=== PATIENT | female | born 1970 | race Hispanic/Latino ===

== ENCOUNTER 2018-01-14 14:02 | Inpatient (IN) | payer OTHER ==
[2018-01-14 14:37] VITALS: BMI 43.2
--- NOTE | 2018-01-14 15:10 | C.PDOC ---
History Of Present Illness 47-year-old female, presents to the emergency department with complaints of low blood pressure. Patient states she checked it at home and it was 80/60. Patient notes light headedness and two-week duration of multiple episodes of watery/non- bloody diarrhea. Pt notes she has been taking Prozac x6 days. She also notes associated subjective fevers and nausea. Denies chest pain, shortness of breath, back pain, or any other associated symptoms. No other complaints at this time. <Rosa M Cisse - Last Filed: 01/14/18 18:30> History Per: Patient History/Exam Limitations: no limitations Onset/Duration Of Symptoms: Days Current Symptoms Are (Timing): Still Present <Rosa M Cisse - Last Filed: 01/14/18 18:30> <Tuan Starr - Last Filed: 01/14/18 20:30> Time Seen by Provider: 01/14/18 14:55 Chief Complaint (Nursing): Dizziness/Lightheaded Past Medical History Reviewed: Historical Data, Nursing Documentation, Vital Signs Vital Signs: Last Vital Signs Temp 98.2 F 01/14/18 14:38 Pulse 99 H 01/14/18 14:38 Resp 18 01/14/18 14:38 BP 92/65 L 01/14/18 14:38 Pulse Ox 100 01/14/18 14:38 - Medical History PMH: Anxiety, Arthritis, Asthma, Bipolar Disorder, Post Traumatic Stress Disorder Surgical History: Tonsillectomy Family History: States: No Known Family Hx - Social History Hx Alcohol Use: No Hx Substance Use: No - Immunization History Hx Tetanus Toxoid Vaccination: No Hx Influenza Vaccination: No Hx Pneumococcal Vaccination: No <BetitoRosa M - Last Filed: 01/14/18 18:30> Vital Signs: Last Vital Signs Temp 98.2 F 01/14/18 14:38 Pulse 74 01/14/18 18:22 Resp 18 01/14/18 18:22 BP 116/56 L 01/14/18 18:22 Pulse Ox 100 01/14/18 18:30 <Tuan Starr - Last Filed: 01/14/18 20:30> Review Of Systems Constitutional: Positive for: Fever Cardiovascular: Positive for: Light Headedness Gastrointestinal: Positive for: Nausea. Negative for: Vomiting Musculoskeletal: Negative for: Back Pain Neurological: Negative for: Weakness, Numbness, Headache, Dizziness <Rosa M Cisse Last Filed: 01/14/18 18:30> Physical Exam - Physical Exam Appears: Non-toxic, No Acute Distress Skin: Warm, Dry, Rash Head: Atraumatic, Normacephalic Eye(s): bilateral: Normal Inspection Nose: Normal Oral Mucosa: Moist Lips: Normal Appearing Neck: Normal ROM Chest: Symmetrical Cardiovascular: Rhythm Regular, No Murmur Respiratory: Normal Breath Sounds, No Accessory Muscle Use Gastrointestinal/Abdominal: Soft, No Tenderness Extremity: Normal ROM, No Deformity Neurological/Psych: Oriented x3, Normal Speech <Rosa M Cisse Last Filed: 01/14/18 18:30> ED Course And Treatment - Laboratory Results Result Diagrams: 01/14/18 15:53 01/14/18 15:53 ECG: Interpreted By Mt ECG Rhythm: Sinus Rhythm ECG Interpretation: Normal Rate From EC O2 Sat by Pulse Oximetry: 100 Pulse Ox Interpretation: Normal - Radiology CXR: Interpreted by Mt CXR Interpretation: Yes: No Acute Disease <Rosa M Cisse Filed: 01/14/18 18:30> - Laboratory Results Result Diagrams: 01/14/18 15:53 01/14/18 15:53 <Tuan Starr - Last Filed: 01/14/18 20:30> Progress - Re-Evaluation Re-evaluation Note: 01/14/18 17:06 IVF IN PROGRESS, PS NO UO. CO PERSIST RUQ PAIN. US NEG. WILL CT, PAIN RX CONT IVF. PENDING REPEAT VBG 01/14/18 18:29 no uo. ivf in progress. 116/[address] REPORT PENDING - Data Reviewed Data Reviewed: Lab, Diagnostic imaging, EKG - Critical Care Citical Care: Excluding Proc Time Critical Care Time: 90 minutes <Rosa M Cisse Last Filed: 01/14/18 18:30> Disposition Counseled Patient/Family Regarding: Studies Performed, Diagnosis - Disposition Disposition Time: 19:00 <BetitoRosa M Lilian Last Filed: 01/14/18 18:30> Discussed With : Juan Manuel Schmid Doctor Will See Patient In The: Hospital Counseled Patient/Family Regarding: Studies Performed, Diagnosis - Disposition Disposition Time: 20:29 - POA Present On Arrival: None <Tuan Starr - Last Filed: 01/14/18 20:30> - Disposition Disposition: HOSPITALIZED Condition: STABLE Forms: [facility] (Japanese) - Clinical Impression Clinical Impression: Enteritis, Dehydration syndrome, Diabetes mellitus - Scribe Statement The provider has reviewed the documentation as recorded by the Scribe (Oleg Mosley) Provider Attestation: All medical record entries made by the Scribe were at my direction and personally dictated by me. I have reviewed the chart and agree that the record accurately reflects my personal performance of the history, physical exam, medical decision making, and the department course for this patient. I have also personally directed, reviewed, and agree with the discharge instructions and disposition. <Rosa M Cisse - Last Filed: 01/14/18 18:30> Decision To Admit <Rosa M Cisse - Last Filed: 01/14/18 18:30> <Tuan Starr - Last Filed: 01/14/18 20:30> - . Patient Diagnosis: Enteritis, Dehydration syndrome, Diabetes mellitus Physician Patient Turnover Patient Signed Over To: Tuan Starr Handoff Comments: NORI CT, DISPO <Rosa M Cisse - Last Filed: 01/14/18 18:30>
[2018-01-14 16:01] LABS: VENOUS BLOOD GAS BASE EXCESS 1.1 mmol/L (0.0-2.0); VENOUS BLOOD GAS PCO2 55 mmHg (40-60); VENOUS BLOOD GAS PO2 29 mm/Hg (30-55); VENOUS BLOOD PH 7.32 (7.32-7.43)
[2018-01-14 16:02] LABS: BASO % 0.4 % (0.0-2.0); EOS % 0.4 % (0.0-4.0); LYMPH # 1.7 K/uL (1.0-4.3); LYMPH % 15.4 % (20.0-40.0); MEAN CELL VOLUME 87.1 fL (81.0-99.0); MEAN CORPUSCULAR HEMOGLOBIN 28.5 pg (27.0-31.0); MEAN CORPUSCULAR HGB CONC 32.7 g/dL (33.0-37.0); MEAN PLATELET VOLUME 9.2 fL (7.2-11.7); MONO # 0.6 K/uL (0.0-0.8); MONO % 5.6 % (0.0-10.0); NEUT # 8.8 K/uL (1.8-7.0); NEUT % 78.2 % (50.0-75.0); RBC 4.55 Mil/uL (3.80-5.20); RED CELL DISTRIBUTION WIDTH 14.3 % (11.5-14.5); WHITE BLOOD COUNT 11.2 K/uL (4.8-10.8)
--- NOTE | 2018-01-14 16:06 | RAD ---
HISTORY: Sepsis Patient COMPARISON: None available. TECHNIQUE: Chest, one view. FINDINGS: Examination limited by habitus. LUNGS: No focal consolidation. Please note that chest x-ray has limited sensitivity for the detection of pulmonary masses. PLEURA: No significant pleural effusion identified. No definite pneumothorax . CARDIOVASCULAR: The cardiomediastinal silhouette appears within normal limits of size. OSSEOUS STRUCTURES: No acute osseous abnormality identified. VISUALIZED UPPER ABDOMEN: Unremarkable. OTHER FINDINGS: None. IMPRESSION: No focal consolidation, significant pleural effusion, or definite pneumothorax identified.
[2018-01-14 16:18] LABS: ALBUMIN 4.3 g/dL (3.5-5.0); ALT/SGPT 26 U/L (9-52); AST/SGOT 15 U/L (14-36); BLOOD UREA NITROGEN 26 mg/dL (7-17); CALCIUM 9.4 mg/dl (8.6-10.4); GFR NON-AFRICAN AMERICAN 59
[2018-01-14] MEDS ORDERED: Sodium Chloride 0.9% 500 ML IV ONE (16:21)
[2018-01-14] MEDS ORDERED: Sodium Chloride 0.9% 3,000 ML ONE (16:21)
--- NOTE | 2018-01-14 16:51 | US ---
Date of service: 01/14/2018 HISTORY: RUQ PAIN COMPARISON: None. TECHNIQUE: Sonographic evaluation of the right upper quadrant of the abdomen. FINDINGS: LIVER: Measures 21.9 cm in length. Hepatopedal blood flow. Fatty infiltration manifest ultrasonographically as increased echogenicity of the liver parenchyma. No mass. No intrahepatic bile duct dilatation. GALLBLADDER: Unremarkable. No gallstones. COMMON BILE DUCT: Measures 5.7 mm. No stones. No dilatation. PANCREAS: Unremarkable as visualized. No mass. No ductal dilatation. RIGHT KIDNEY: Measures 6 x 12.2 cm in length. Normal echogenicity. No calculus, mass, or hydronephrosis. AORTA: No aneurysmal dilatation. IVC: Unremarkable. OTHER FINDINGS: None . IMPRESSION: Hepatomegaly, hepatic steatosis. No acute findings related to/accounting for the clinical presentation.
[2018-01-14 17:24] LABS: ALB/GLOB RATIO 1.4 (1.0-2.1)
[2018-01-14] MEDS ORDERED: Morphine 4 MG/ML VIAL ONE (17:27)
[2018-01-14] MEDS ORDERED: Iodixanol 320 MG/ML 100 ML BOTTLE IV ONE (17:45)
[2018-01-14 19:04] LABS: VENOUS BLOOD GAS BASE EXCESS -1.9 mmol/L (0.0-2.0); VENOUS BLOOD GAS PCO2 46 mmHg (40-60); VENOUS BLOOD GAS PO2 18 mm/Hg (30-55); VENOUS BLOOD PH 7.33 (7.32-7.43)
[2018-01-14 19:05] LABS: SQUAMOUS EPITHIAL 4 /hpf (0-5); URINE BACTERIA RARE (<OCC); URINE BILIRUBIN NEGATIVE (NEGATIVE); URINE BLOOD 1+ (NEGATIVE); URINE CLARITY Clear (Clear); URINE COLOR Yellow (YELLOW); URINE GLUCOSE (UA) NORMAL (Normal); URINE LEUKOCYTE ESTERASE TRACE Leu/uL (Negative); URINE PROTEIN NEGATIVE (NEGATIVE); URINE UROBILINOGEN NORMAL mg/dL (0.2-1.0)
[2018-01-14] MEDS ORDERED: (Novolin R) Insulin Human Regular 100 units/ml vial SC SCH (22:00)
[2018-01-14] MEDS: Sodium Chloride 0.9% 1,000 ML IV SCH (23:30)
[2018-01-15 07:39] LABS: BASO % 0.5 % (0.0-2.0); EOS # 0.1 K/uL (0.0-0.7); EOS % 0.9 % (0.0-4.0); LYMPH # 1.3 K/uL (1.0-4.3); LYMPH % 19.8 % (20.0-40.0); MEAN CELL VOLUME 86.6 fL (81.0-99.0); MEAN CORPUSCULAR HGB CONC 33.5 g/dL (33.0-37.0); MEAN PLATELET VOLUME 9.3 fL (7.2-11.7); MONO # 0.5 K/uL (0.0-0.8); MONO % 6.8 % (0.0-10.0); NEUT # 4.9 K/uL (1.8-7.0); RBC 4.13 Mil/uL (3.80-5.20); RED CELL DISTRIBUTION WIDTH 14.4 % (11.5-14.5); WHITE BLOOD COUNT 6.7 K/uL (4.8-10.8)
[2018-01-15 08:32] LABS: ALB/GLOB RATIO 1.1 (1.0-2.1); ALBUMIN 3.3 g/dL (3.5-5.0); ALT/SGPT 23 U/L (9-52); AST/SGOT 13 U/L (14-36); BLOOD UREA NITROGEN 14 mg/dL (7-17); CALCIUM 8.4 mg/dl (8.6-10.4); GFR NON-AFRICAN AMERICAN > 60
[2018-01-15] MEDS: Sodium Chloride 0.9% 1,000 ML IV SCH ×3 (08:45→18:00)
--- NOTE | 2018-01-15 09:12 | CT ---
Date of service: 01/14/2018 PROCEDURE: CT Abdomen and Pelvis with intravenous contrast HISTORY: Right upper quadrant abdominal pain COMPARISON: None. TECHNIQUE: Multiple contiguous axial images were performed through the abdomen and pelvis with the use of intravenous contrast. Subsequently, sagittal and coronal reformatted images were obtained. Radiation dose: Total exam DLP = 1196 mGy-cm. This CT exam was performed using one or more of the following dose reduction techniques: Automated exposure control, adjustment of the mA and/or kV according to patient size, and/or use of iterative reconstruction technique. FINDINGS: LOWER THORAX: Unremarkable. LIVER: Diffuse hepatic hypoattenuation compatible with fatty infiltration. The liver is enlarged measuring 22 centimeters. GALLBLADDER AND BILE DUCTS: Contracted gallbladder. PANCREAS: Unremarkable. No gross lesion or ductal dilatation. SPLEEN: Unremarkable. ADRENALS: Nodular thickening of the adrenal glands. For example, in the left adrenal gland there is a 1.3 centimeter low-attenuation nodule demonstrating a Hounsfield unit attenuation of 29, indeterminate. This may be better evaluated with multiphasic CT or MR if clinically indicated. KIDNEYS AND URETERS: Unremarkable. No hydronephrosis. No solid mass. VASCULATURE: Unremarkable. No aortic aneurysm. BOWEL: Thick walled fluid-filled duodenum and loops of jejunum as well as ileum compatible with enteritis. Infectious and inflammatory etiologies are considered. Consider consultation with GI service and follow-up with upper endoscopy and colonoscopy if clinically indicated. Underdistended and or mildly thickened transverse and descending colon. Clinical correlation. APPENDIX: No findings to suggest acute appendicitis. PERITONEUM: Unremarkable. No free fluid. No free air. LYMPH NODES: Unremarkable. No enlarged lymph nodes. BLADDER: Unremarkable. REPRODUCTIVE: Unremarkable. BONES: Degenerative changes in the spine. OTHER FINDINGS: Few calcifications noted within the region of the inferior right breast on series 3, images 4-8, nonspecific. Correlation with mammography may be helpful if clinically indicated. IMPRESSION: Prominent liver with diffuse decreased attenuation throughout the hepatic parenchyma suggestive for fatty infiltration. Liver is enlarged measuring 22 centimeters. Thick walled fluid-filled duodenum and loops of jejunum as well as ileum compatible with enteritis. Infectious and inflammatory etiologies are considered. Consider consultation with GI service and follow-up with upper endoscopy and colonoscopy if clinically indicated. Underdistended and or mildly thickened transverse and descending colon. Clinical correlation. Few calcifications noted within the region of the inferior right breast on series 3, images 4-8, nonspecific. Correlation with mammography may be helpful if clinically indicated. Nodular thickening of the adrenal glands. For example, in the left adrenal gland there is a 1.3 centimeter low-attenuation nodule demonstrating a Hounsfield unit attenuation of 29, indeterminate. This may be better evaluated with multiphasic CT or MR if clinically indicated. These findings were preliminarily reported at 7 p.m. on 01/14/[address] Jaycob Ludwig from [facility].
[2018-01-15] MEDS: Enoxaparin 40 mg Syringe SC SCH (10:32)
[2018-01-15] MEDS: (Novolin R) Insulin Human Regular 100 units/ml vial SC SCH ×3 (11:59→21:39)
[2018-01-15] MEDS: metroNIDAZOLE IV 500 mg/100 ml 500 MG/100 ML BAG IVPB SCH ×2 (12:50→21:41)
[2018-01-15 14:01] LABS: AMYLASE 45 U/L (30-110); LIPASE 48 U/L (23-300)
--- NOTE | 2018-01-15 21:53 | CP.PCM.HP ---
Past Patient History - Past Social History Smoking Status: Current Some Days Smoker - CARDIAC Hx Cardiac Disorders: Yes Hx Hypotension: Yes - PULMONARY Hx Respiratory Disorders: Yes Hx Asthma: Yes - NEUROLOGICAL Hx Neurological Disorder: No - HEENT Hx HEENT Problems: No - RENAL Hx Chronic Kidney Disease: No - ENDOCRINE/METABOLIC Hx Endocrine Disorders: Yes Hx Diabetes Mellitus Type 2: Yes - HEMATOLOGICAL/ONCOLOGICAL Hx Blood Disorders: No - INTEGUMENTARY Hx Dermatological Problems: No - MUSCULOSKELETAL/RHEUMATOLOGICAL Hx Musculoskeletal Disorders: Yes Hx Arthritis: Yes Hx Falls: No - GASTROINTESTINAL Hx Gastrointestinal Disorders: No - GENITOURINARY/GYNECOLOGICAL Hx Genitourinary Disorders: No - PSYCHIATRIC Hx Psychophysiologic Disorder: Yes Hx Anxiety: Yes Hx Bipolar Disorder: Yes Hx Post Traumatic Stress Disorder: Yes Hx Substance Use: No - SURGICAL HISTORY Hx Surgeries: Yes Hx Tonsillectomy: Yes - ANESTHESIA Hx Anesthesia: Yes Hx Anesthesia Reactions: No Meds Allergies/Adverse Reactions: Allergies Allergy/AdvReac Type Severity Reaction Status Date / Time No Known Allergies Allergy Verified 01/14/18 14:32 Results - Vital Signs Recent Vital Signs: Last Vital Signs Temp 98.3 F 01/15/18 00:00 Pulse 71 01/15/18 00:00 Resp 20 01/15/18 00:00 BP 111/73 01/15/18 00:00 Pulse Ox 96 01/15/18 00:00 - Labs Result Diagrams: 01/15/18 07:28 01/15/18 07:28 Labs: Laboratory Results - last 24 hr 01/14/18 01/14/18 01/15/18 18:41 21:50 07:06 WBC RBC Hgb Hct MCV MCH MCHC RDW Plt Count MPV Neut % (Auto) Lymph % (Auto) Meriwether % (Auto) Eos % (Auto) Baso % (Auto) Neut # (Auto) Lymph # (Auto) Meriwether # (Auto) Eos # (Auto) Baso # (Auto) Sodium Potassium Chloride Carbon Dioxide Anion Gap BUN Creatinine Est GFR ( Amer) Est GFR (Non-Af Amer) POC Glucose (mg/dL) 229 H 208 H 214 H Random Glucose Calcium Total Bilirubin AST ALT Alkaline Phosphatase Total Protein Albumin Globulin Albumin/Globulin Ratio Amylase Lipase 01/15/18 01/15/18 01/15/18 07:28 07:28 11:00 WBC 6.7 RBC 4.13 Hgb 12.0 Hct 35.8 MCV 86.6 MCH 29.0 MCHC 33.5 RDW 14.4 Plt Count 186 MPV 9.3 Neut % (Auto) 72.0 Lymph % (Auto) 19.8 L Meriwether % (Auto) 6.8 Eos % (Auto) 0.9 Baso % (Auto) 0.5 Neut # (Auto) 4.9 Lymph # (Auto) 1.3 Meriwether # (Auto) 0.5 Eos # (Auto) 0.1 Baso # (Auto) 0.0 Sodium 140 Potassium 3.7 Chloride 104 Carbon Dioxide 23 Anion Gap 17 BUN 14 Creatinine 0.6 L Est GFR ( Amer) > 60 Est GFR (Non-Af Amer) > 60 POC Glucose (mg/dL) 329 H Random Glucose 238 H Calcium 8.4 L Total Bilirubin 0.5 AST 13 L ALT 23 Alkaline Phosphatase 88 Total Protein 6.3 Albumin 3.3 L D Globulin 3.0 Albumin/Globulin Ratio 1.1 Amylase Lipase 01/15/18 01/15/18 01/15/18 13:35 16:21 21:22 WBC RBC Hgb Hct MCV MCH MCHC RDW Plt Count MPV Neut % (Auto) Lymph % (Auto) Meriwether % (Auto) Eos % (Auto) Baso % (Auto) Neut # (Auto) Lymph # (Auto) Meriwether # (Auto) Eos # (Auto) Baso # (Auto) Sodium Potassium Chloride Carbon Dioxide Anion Gap BUN Creatinine Est GFR ( Amer) Est GFR (Non-Af Amer) POC Glucose (mg/dL) 206 H 225 H Random Glucose Calcium Total Bilirubin AST ALT Alkaline Phosphatase Total Protein Albumin Globulin Albumin/Globulin Ratio Amylase 45 Lipase 48
--- NOTE | 2018-01-15 23:10 | CARD ---
APPROVED REPORT Date of service: 01/14/2018 EKG Measurement Heart [id number] <Conclusion> Normal sinus rhythm Possible Left atrial enlargement Borderline ECG
[2018-01-16] MEDS: Sodium Chloride 0.9% 1,000 ML IV SCH ×3 (03:55→20:40)
[2018-01-16] MEDS: metroNIDAZOLE IV 500 mg/100 ml 500 MG/100 ML BAG IVPB SCH ×3 (04:58→21:50)
--- NOTE | 2018-01-16 06:54 | HP ---
CHIEF COMPLAINT: Abdominal pain x2 weeks. HISTORY OF PRESENT ILLNESS: A 47-year-old white female with history of obesity, diabetes, hypertension, hyperlipidemia who is compliant with her diet, medication, and followup. The patient believes that since her metformin dosages were increased two weeks ago by her tongue trimmer, she is having diarrhea, nausea, vomiting, persistent abdominal pain in the form of cramps, stool are loose, watery with no blood, no mucous. Stool is green with no tenesmus. The patient has nausea, no vomiting. She has frequency of urination, polyuria, polydipsia. She denies any knee pain, hip pain. She feels bloated. She denies any history of cough, sore throat, runny nose. There is no history of trauma or loss of consciousness. There is no history of seizure like activity. She denies any tingling, numbness, paresthesias of lower extremities. She denies any sneezing, itchy eyes, itchy nose. PAST MEDICAL HISTORY: Diabetes, hypertension, hyperlipidemia. SOCIAL HISTORY: Nonsmoker. Non-ETOH user. CURRENT MEDICATIONS: At home, she is on metformin, trazodone, Prazosin, Ventolin, Lantus, NovoLog, metformin, Cozaar, fluoxetine, Abilify. PHYSICAL EXAMINATION: GENERAL: A middle aged female, in no acute distress. VITAL SIGNS: Blood pressure 111/73, pulse 71, respiratory rate 20, temperature 98.3. SKIN: No rashes. No bruises. No purpura. HEENT: Atraumatic, normocephalic. Negative pallor. Negative jaundice. Extraocular movements are intact. NECK: Supple. No JVD. No lymph node. No thyromegaly. CHEST WALL: Bilaterally symmetrical expansion. LUNGS: Clear. No rales. No rhonchi. CVS: S1, S2, regular. No heave noted. ABDOMEN: Soft. Nontender. Bowel sounds are positive. RECTAL: No masses. No bleed. EXTREMITIES: No clubbing, cyanosis, or edema. PATENT LEATHER SORTER: Awake, alert, oriented x3. Cranial nerves II through XII are all involved, 5/5 x4. ASSESSMENT: 1. Acute colitis, could be gastroenteritis, could be related with metformin. 2. Depression. 3. Diabetes. 4. Hypertension. PLAN: Admit. IV fluids. Antibiotics. GI evaluation. Monitor patient. Juan Manuel Schmid MD
[2018-01-16 07:24] LABS: INR 1.2; PROTHROMBIN TIME 12.9 SECONDS (9.7-12.2)
[2018-01-16] MEDS: (Novolin R) Insulin Human Regular 100 units/ml vial SC SCH ×5 (08:27→21:38)
[2018-01-16] MEDS ORDERED: Propofol 10 mg/ml Inj (20 ML) ONE (09:36)
[2018-01-16] MEDS: Enoxaparin 40 mg Syringe SC SCH (09:44)
[2018-01-16] MEDS ORDERED: Influenza Vaccine 60 MCG/0.5 ML SYR (3 yr & up) IM ONE ×3 (10:00→15:00)
[2018-01-16] MEDS ORDERED: Pneumococcal 23-Valent Vaccine IM ONE ×3 (10:00→15:00)
--- NOTE | 2018-01-16 22:48 | CON ---
DATE: 01/15/[address] Santo Song to Dr. Juan Manuel Schmid. HISTORY OF PRESENT ILLNESS: I was called for GI consultation by the admitting medical team. The patient is seen and fully examined on 01/15/2018 in the presence of the staff in the floor as requested by the admitting MD. The entire chart is reviewed including but not limited to the most recent lab and radiology study results, current and the previous medication list, current and the previous medical events, allergy to medication list as well as all the available current and the previous medical records. Case discussed with all the residential solar consultant in the case. This is a 47-year-old female who was admitted to the hospital initially due to hypotension with slight headache, recurrent episodes of profuse diarrhea, nausea and vomiting on and off, after being taking Prozac for the last 6 to 7 days with dyspepsia, persistent nausea, and low grade fever on and off. No chest pain or palpitation. No significant shortness of breath. PAST MEDICAL HISTORY: Including mainly but not limited to, 1. Bronchial asthma. 2. Bipolar disorder. 3. Severe anxiety syndrome. 4. Osteoarthritis. 5. Status post tonsillectomy. FAMILY HISTORY: Noncontributory. SOCIAL HISTORY: Denied any recent history of cigarette smoking or alcohol intake. CURRENT MEDICATIONS: Post admission medication list was reviewed. ALLERGIES TO MEDICATIONS: UNCLEAR. After being admitted to the hospital, the patient was found to have leukocytosis of 11.2, blood glucose level of 264, BUN 26 with normal creatinine. Stool workup is still pending. PHYSICAL EXAMINATION: GENERAL: A 47-year-old female, awake, alert, oriented. VITAL SIGNS: Afebrile at the time she was seen by me with pulse of 70, respiratory rate 18 to 20 with blood pressure 122/64. HEENT: Showed pale dry oral mucoid membrane mildly, nonicteric sclerae. LYMPH NODES: No lymphadenitis or lymphadenopathy. LUNGS: Few scattered mild crepitation. Breathing sounds are present bilaterally. HEART: Positive S1 and S2. ABDOMEN: Soft with moderate severe midepigastric right upper quadrant, lower left and right quadrant tenderness. No mass or organomegaly. No rebound tenderness or guarding. RECTAL: The patient refused. EXTREMITIES: Without significant clubbing, cyanosis, or edema. No reported new neurological deficits, sensory or motor. IMPRESSION: 1. Re-exacerbation of peptic ulcer disease with recurrent episode of persistent dyspepsia and nausea, to rule out gastric versus duodenal ulcer. 2. Diarrhea, infectious versus drug induced. 3. To rule out occult gastrointestinal malignancy. 4. To rule out drug-induced acute pancreatitis with pancreatic insufficiency. 5. Multiple past medical history as mentioned above. SUGGESTIONS: 1. Agree with your plan. 2. Peripheral hyperalimentation. 3. Proton pump inhibitors IV. 4. Zofran IV. 5. Sectional abdominal and pelvic CT scan. Cancer markers. Endoscopic evaluation of the GI tract when the patient is more stable clinically. Further recommendation to follow. Thank you for letting me participate in your patient's case management. Santo Song MD
--- NOTE | 2018-01-16 23:31 | CP.PCM.PN ---
Subjective - Subjective Subjective: dictated Objective - Vital Signs/Intake and Output Vital Signs (last 24 hours): Temp Pulse Resp BP Pulse Ox 98.4 F 56 L 20 136/73 96 01/16/18 16:00 01/16/18 16:00 01/16/18 16:00 01/16/18 16:00 01/16/18 16:00 Intake and Output: 01/16/18 01/17/18 18:59 06:59 Intake Total 850 Balance 850 - Medications Medications: Current Medications Acetaminophen (Tylenol 325mg Tab) 650 mg PO Q6 PRN PRN Reason: Fever >100.4 F Aripiprazole (Abilify) 30 mg PO DAILY [facility] Last Admin: 01/16/18 09:44 Dose: Not Given Enoxaparin Sodium (Lovenox) 40 mg SC DAILY [facility] Last Admin: 01/16/18 09:44 Dose: Not Given Famotidine (Pepcid) 20 mg IVP Q12 [facility] Last Admin: 01/16/18 21:51 Dose: 20 mg Fluoxetine HCl (Prozac) 20 mg PO DAILY [facility] Last Admin: 01/16/18 09:45 Dose: Not Given Sodium Chloride (Sodium Chloride 0.9%) 1,000 mls @ 100 mls/hr IV .Q10H [facility] Last Admin: 01/16/18 20:40 Dose: 100 mls/hr Metronidazole (Flagyl) 500 mg in 100 mls @ 100 mls/hr IVPB Q8H [facility]; Protocol Last Admin: 01/16/18 21:50 Dose: 100 mls/hr Ceftriaxone Sodium 1 gm/ (Sodium Chloride) 100 mls @ 100 mls/hr IVPB DAILY [facility]; Protocol Last Admin: 01/16/18 11:35 Dose: 100 mls/hr Insulin Human Regular (Novolin R) 0 unit SC ACHS [facility]; Protocol Last Admin: 01/16/18 21:38 Dose: Not Given Montelukast Sodium (Singulair) 10 mg PO DAILY [facility] Last Admin: 01/16/18 09:45 Dose: Not Given Morphine Sulfate (Morphine) 2 mg IVP Q6H PRN PRN Reason: Pain, severe (8-10) Last Admin: 01/16/18 14:28 Dose: 2 mg Ondansetron HCl (Zofran Inj) 4 mg IVP Q6 PRN PRN Reason: Nausea/Vomiting Sucralfate (Carafate Tab) 1 gm PO ACBHS [facility] Last Admin: 01/16/18 21:51 Dose: 1 gm Trazodone HCl (Desyrel) 150 mg PO [facility] Last Admin: 01/16/18 21:51 Dose: 150 mg - Labs Labs: 01/15/18 07:28 01/15/18 07:28 PT 12.9 SECONDS (9.7-12.2) H 01/16/18 06:31 INR 1.2 01/16/18 06:31 APTT 28 SECONDS (21-34) 01/16/18 06:31
[2018-01-17] MEDS: metroNIDAZOLE IV 500 mg/100 ml 500 MG/100 ML BAG IVPB SCH ×3 (04:05→20:11)
[2018-01-17] MEDS: (Novolin R) Insulin Human Regular 100 units/ml vial SC SCH ×4 (08:16→22:15)
[2018-01-17] MEDS: Enoxaparin 40 mg Syringe SC SCH (09:35)
--- NOTE | 2018-01-17 10:11 | PN ---
DATE: 01/17/2018 LOCATION: 350, bed B. HISTORY OF PRESENT ILLNESS: This is a 47-year-old female post upper endoscopy yesterday with biopsy, seen and examined early this morning without significant clinical changes. No reported active bleeding, nausea, or vomiting, or chills or fever. No chest pain or palpitation or reported shortness of breath. Today's lab results still pending, and the latest blood glucose level was 191 with normal serum lipase and amylase levels. Official report of recently done CAT scan of the abdomen and pelvis is seen with evidence of thickened wall of the colon. PHYSICAL EXAMINATION: GENERAL: A 47-year-old female. VITAL SIGNS: Afebrile with pulse of 64, respiratory rate 20-22, blood pressure of 120/68. HEENT: Showed pale, dry oral mucous membrane mildly, nonicteric sclerae. LUNGS: Few scattered crepitations. Decreased air entry at bases. HEART: Positive S1 and S2. ABDOMEN: Soft. Bowel sounds are present with generalized abdominal tenderness. No mass or organomegaly. No rebound tenderness or guarding. EXTREMITIES: Without significant clubbing, cyanosis, or edema. NEUROLOGIC: No reported new neurological deficits, sensory or motor. IMPRESSION: 1. Re-exacerbation of peptic ulcer disease. 2. Abnormal CAT scan of the abdomen and pelvis. The patient will need colonoscopy after adequate preparation. 3. Severe enteritis by radiology study results. 4. Known history of bronchial asthma, severe anxiety syndrome, osteoarthritis as well as bipolar disorder as per records. SUGGESTIONS: 1. Continue current management. 2. We will prepare the patient for colonoscopy after adequate preparation. 3. Further recommendation to follow. Santo Song MD
[2018-01-17 11:16] LABS: BASO # 0.1 K/uL (0.0-0.2); BASO % 0.6 % (0.0-2.0); EOS % 0.4 % (0.0-4.0); HEMOGLOBIN 12.7 g/dL (11.0-16.0); LYMPH # 1.3 K/uL (1.0-4.3); LYMPH % 14.4 % (20.0-40.0); MEAN CELL VOLUME 85.6 fL (81.0-99.0); MEAN CORPUSCULAR HEMOGLOBIN 28.7 pg (27.0-31.0); MEAN CORPUSCULAR HGB CONC 33.6 g/dL (33.0-37.0); MEAN PLATELET VOLUME 9.1 fL (7.2-11.7); MONO # 0.5 K/uL (0.0-0.8); MONO % 5.7 % (0.0-10.0); NEUT % 78.9 % (50.0-75.0); RBC 4.42 Mil/uL (3.80-5.20); RED CELL DISTRIBUTION WIDTH 14.3 % (11.5-14.5); WHITE BLOOD COUNT 8.8 K/uL (4.8-10.8)
[2018-01-17 11:52] LABS: ALB/GLOB RATIO 1.1 (1.0-2.1); ALBUMIN 3.4 g/dL (3.5-5.0); ALT/SGPT 23 U/L (9-52); AST/SGOT 15 U/L (14-36); BLOOD UREA NITROGEN 6 mg/dL (7-17); CALCIUM 8.6 mg/dl (8.6-10.4); GFR NON-AFRICAN AMERICAN > 60
[2018-01-17] MEDS: Sodium Chloride 0.9% 1,000 ML IV SCH ×3 (12:19→20:11)
--- NOTE | 2018-01-17 22:10 | CP.PCM.PN ---
Subjective - Subjective Subjective: dictated Objective - Vital Signs/Intake and Output Vital Signs (last 24 hours): Temp Pulse Resp BP Pulse Ox 97.8 F 55 L 20 145/84 96 01/17/18 16:00 01/17/18 16:00 01/17/18 16:00 01/17/18 16:00 01/17/18 16:00 Intake and Output: 01/17/18 01/18/18 18:59 06:59 Intake Total 1200 Balance 1200 - Medications Medications: Current Medications Acetaminophen (Tylenol 325mg Tab) 650 mg PO Q6 PRN PRN Reason: Fever >100.4 F Last Admin: 01/17/18 16:09 Dose: 650 mg Aripiprazole (Abilify) 30 mg PO DAILY [facility] Last Admin: 01/17/18 09:57 Dose: 30 mg Enoxaparin Sodium (Lovenox) 40 mg SC DAILY [facility] Last Admin: 01/17/18 09:35 Dose: 40 mg Famotidine (Pepcid) 20 mg IVP Q12 [facility] Last Admin: 01/17/18 21:04 Dose: 20 mg Fluoxetine HCl (Prozac) 20 mg PO DAILY [facility] Last Admin: 01/17/18 09:36 Dose: 20 mg Sodium Chloride (Sodium Chloride 0.9%) 1,000 mls @ 100 mls/hr IV .Q10H [facility] Last Admin: 01/17/18 20:11 Dose: Not Given Metronidazole (Flagyl) 500 mg in 100 mls @ 100 mls/hr IVPB Q8H [facility]; Protocol Last Admin: 01/17/18 20:11 Dose: 100 mls/hr Ceftriaxone Sodium 1 gm/ (Sodium Chloride) 100 mls @ 100 mls/hr IVPB DAILY [facility]; Protocol Last Admin: 01/17/18 12:18 Dose: 100 mls/hr Insulin Human Regular (Novolin R) 0 unit SC ACHS [facility]; Protocol Last Admin: 01/17/18 17:59 Dose: 2 units Montelukast Sodium (Singulair) 10 mg PO DAILY [facility] Last Admin: 01/17/18 09:35 Dose: 10 mg Morphine Sulfate (Morphine) 2 mg IVP Q6H PRN PRN Reason: Pain, severe (8-10) Last Admin: 01/17/18 16:21 Dose: 2 mg Ondansetron HCl (Zofran Inj) 4 mg IVP Q6 PRN PRN Reason: Nausea/Vomiting Sennosides (Senokot Tab) 8.6 mg PO DAILY [facility] Last Admin: 01/17/18 17:59 Dose: 8.6 mg Sucralfate (Carafate Tab) 1 gm PO ACBHS [facility] Last Admin: 01/17/18 21:04 Dose: 1 gm Trazodone HCl (Desyrel) 150 mg PO HS [facility] Last Admin: 01/17/18 21:04 Dose: 150 mg - Labs Labs: 01/17/18 11:09 01/17/18 11:09 PT 12.9 SECONDS (9.7-12.2) H 01/16/18 06:31 INR 1.2 01/16/18 06:31 APTT 28 SECONDS (21-34) 01/16/18 06:31
[2018-01-18] MEDS: Sodium Chloride 0.9% 1,000 ML IV SCH ×2 (00:59→13:40)
[2018-01-18] MEDS: metroNIDAZOLE IV 500 mg/100 ml 500 MG/100 ML BAG IVPB SCH ×3 (04:13→21:37)
[2018-01-18] MEDS: (Novolin R) Insulin Human Regular 100 units/ml vial SC SCH ×4 (08:36→21:36)
[2018-01-18] MEDS: Enoxaparin 40 mg Syringe SC SCH (09:48)
[2018-01-18] MEDS ORDERED: Peg-Electrolyte Oral Soln 4L (Golytely) PO ONE (11:00)
--- NOTE | 2018-01-18 13:38 | PN ---
DATE: 01/18/2018 LOCATION: 350, bed B. SUBJECTIVE: This is a 47-year-old female seen and examined in rounds without significant clinical changes, but intermittent period of abdominal pain with postprandial abdominal distention. The entire chart is reviewed including but not limited to the most recent lab and radiology study results, current and the previous medication list, current and the previous medical events. Today's lab results showed blood glucose level of 256. Rest of the lab results still pending. It has to be mentioned that the patient denied any actual chest pain, palpitation, shortness of breath. PHYSICAL EXAMINATION: GENERAL: A 47-year-old female complaining of abdominal pain this morning in the midepigastric and left quadrant area. VITAL SIGNS: Afebrile with pulse of 64, respiratory rate 20 to 22, blood pressure of 136/76. HEENT: Showed pale, dry oral mucous membrane. Nonicteric sclerae. LUNGS: Few scattered crepitation. Decreased air entry at bases. HEART: Positive S1 and S2. ABDOMEN: Soft with mild generalized tenderness. No mass or organomegaly. No rebound tenderness or guarding. Abdominal distention noticed. RECTAL: The patient refused. EXTREMITIES: Without edema, clubbing or cyanosis. IMPRESSION: 1. Re-exacerbation of peptic ulcer disease. 2. Abnormal CAT scan of the abdomen and pelvis. 3. Poorly-controlled diabetes mellitus. 4. Known history of bronchial asthma, severe anxiety syndrome with osteoarthritis as well as reported bipolar disorder. SUGGESTIONS: 1. Continue current management. 2. The patient for colonoscopy at a.m. 3. Further recommendation to follow. Santo Song MD
[2018-01-18] MEDS ORDERED: Bisacodyl 5mg EC Tab PO ONE (17:00)
--- NOTE | 2018-01-18 19:15 | CP.PCM.PN ---
Objective - Vital Signs/Intake and Output Vital Signs (last 24 hours): Temp Pulse Resp BP Pulse Ox 98.2 F 56 L 20 139/83 97 01/18/18 16:00 01/18/18 16:00 01/18/18 16:00 01/18/18 16:00 01/18/18 16:00 Intake and Output: 01/18/18 01/19/18 18:59 06:59 Intake Total 2220 Balance 2220 - Medications Medications: Current Medications Acetaminophen (Tylenol 325mg Tab) 650 mg PO Q6 PRN PRN Reason: Fever >100.4 F Last Admin: 01/17/18 16:09 Dose: 650 mg Aripiprazole (Abilify) 30 mg PO DAILY [facility] Last Admin: 01/18/18 09:48 Dose: 30 mg Enoxaparin Sodium (Lovenox) 40 mg SC DAILY [facility] Last Admin: 01/18/18 09:48 Dose: 40 mg Famotidine (Pepcid) 20 mg IVP Q12 [facility] Last Admin: 01/18/18 10:28 Dose: 20 mg Fluoxetine HCl (Prozac) 20 mg PO DAILY [facility] Last Admin: 01/18/18 09:48 Dose: 20 mg Sodium Chloride (Sodium Chloride 0.9%) 1,000 mls @ 100 mls/hr IV .Q10H [facility] Last Admin: 01/18/18 13:40 Dose: 100 mls/hr Metronidazole (Flagyl) 500 mg in 100 mls @ 100 mls/hr IVPB Q8H [facility]; Protocol Last Admin: 01/18/18 13:41 Dose: 100 mls/hr Ceftriaxone Sodium 1 gm/ (Sodium Chloride) 100 mls @ 100 mls/hr IVPB DAILY [facility]; Protocol Last Admin: 01/18/18 09:50 Dose: 100 mls/hr Insulin Human Regular (Novolin R) 0 unit SC ACHS [facility]; Protocol Last Admin: 01/18/18 17:09 Dose: Not Given Metoclopramide HCl (Reglan) 5 mg IVP Q6H [facility] Last Admin: 01/18/18 08:35 Dose: 5 mg Montelukast Sodium (Singulair) 10 mg PO DAILY [facility] Last Admin: 01/18/18 09:48 Dose: 10 mg Morphine Sulfate (Morphine) 2 mg IVP Q6H PRN PRN Reason: Pain, severe (8-10) Last Admin: 01/17/18 16:21 Dose: 2 mg Ondansetron HCl (Zofran Inj) 4 mg IVP Q6 PRN PRN Reason: Nausea/Vomiting Sennosides (Senokot Tab) 8.6 mg PO DAILY [facility] Last Admin: 01/18/18 09:48 Dose: 8.6 mg Sucralfate (Carafate Tab) 1 gm PO ACBHS [facility] Last Admin: 01/18/18 08:36 Dose: 1 gm Trazodone HCl (Desyrel) 150 mg PO HS [facility] Last Admin: 01/17/18 21:04 Dose: 150 mg - Labs Labs: 01/17/18 11:09 01/17/18 11:09 PT 12.9 SECONDS (9.7-12.2) H 01/16/18 06:31 INR 1.2 01/16/18 06:31 APTT 28 SECONDS (21-34) 01/16/18 06:31
[2018-01-19] MEDS: Sodium Chloride 0.9% 1,000 ML IV SCH ×3 (02:00→13:10)
[2018-01-19] MEDS: metroNIDAZOLE IV 500 mg/100 ml 500 MG/100 ML BAG IVPB SCH ×2 (03:59→13:09)
[2018-01-19] MEDS: (Novolin R) Insulin Human Regular 100 units/ml vial SC SCH ×3 (08:31→17:19)
--- NOTE | 2018-01-19 10:02 | PN ---
DATE: 01/18/2018 SUBJECTIVE: The patient is feeling better. She has decreased abdominal pain. She is on solid diet and she is tolerating well. She has no fever or chills. She denies any diarrhea. The patient had a bowel movement of small amount. PHYSICAL EXAMINATION: VITAL SIGNS: BP 139/83, pulse 56, respiratory rate 20, and temperature 98.2. LUNGS: Clear. No rales. No rhonchi. CARDIOVASCULAR SYSTEM: S1 and S2, regular. ABDOMEN: Soft and nontender. Bowel sounds are positive. ASSESSMENT: 1. Gastritis, enteritis. 2. Dehydration. 3. Type 2 diabetes. 4. Hypertension. PLAN: Continue current medications. Proceed diet. Monitor the patient. Juan Manuel Schmid MD
[2018-01-19] MEDS: Enoxaparin 40 mg Syringe SC SCH (10:28)
[2018-01-19] MEDS ORDERED: Lactated Ringer's 1,000 ML IV ONE (11:05)
[2018-01-19] MEDS ORDERED: Midazolam 2 MG/2 ML VIAL ONE (11:10)
[2018-01-19] MEDS ORDERED: Propofol 10 mg/ml Inj (20 ML) ONE ×2 (11:10→11:23)
--- NOTE | 2018-01-19 15:55 | CP.PCM.PN ---
Subjective - Date & Time of Evaluation Date of Evaluation: 01/19/18 Time of Evaluation: 15:55 - Subjective Subjective: Alert, orientedx3, denies acute pain, nausea or vomiting, NAD. Objective - Vital Signs/Intake and Output Vital Signs (last 24 hours): Temp Pulse Resp BP Pulse Ox 97.3 F L 63 18 150/64 100 01/19/18 11:33 01/19/18 12:03 01/19/18 12:03 01/19/18 12:03 01/19/18 12:03 Intake and Output: 01/19/18 01/19/18 06:59 18:59 Intake Total 800 Balance 800 - Medications Medications: Current Medications Acetaminophen (Tylenol 325mg Tab) 650 mg PO Q6 PRN PRN Reason: Fever >100.4 F Last Admin: 01/19/18 13:06 Dose: 650 mg Aripiprazole (Abilify) 30 mg PO DAILY [facility] Last Admin: 01/19/18 13:06 Dose: 30 mg Enoxaparin Sodium (Lovenox) 40 mg SC DAILY [facility] Last Admin: 01/19/18 10:28 Dose: Not Given Famotidine (Pepcid) 20 mg IVP Q12 [facility] Last Admin: 01/19/18 10:28 Dose: 20 mg Fluoxetine HCl (Prozac) 20 mg PO DAILY [facility] Last Admin: 01/19/18 13:09 Dose: 20 mg Sodium Chloride (Sodium Chloride 0.9%) 1,000 mls @ 100 mls/hr IV .Q10H [facility] Last Admin: 01/19/18 13:10 Dose: Not Given Metronidazole (Flagyl) 500 mg in 100 mls @ 100 mls/hr IVPB Q8H [facility]; Protocol Last Admin: 01/19/18 13:09 Dose: 100 mls/hr Ceftriaxone Sodium 1 gm/ (Sodium Chloride) 100 mls @ 100 mls/hr IVPB DAILY [facility]; Protocol Last Admin: 01/19/18 10:23 Dose: 100 mls/hr Insulin Human Regular (Novolin R) 0 unit SC ACHS [facility]; Protocol Last Admin: 01/19/18 11:30 Dose: Not Given Metoclopramide HCl (Reglan) 5 mg IVP Q6H [facility] Last Admin: 01/19/18 13:10 Dose: Not Given Montelukast Sodium (Singulair) 10 mg PO DAILY [facility] Last Admin: 01/19/18 10:29 Dose: Not Given Ondansetron HCl (Zofran Inj) 4 mg IVP Q6 PRN PRN Reason: Nausea/Vomiting Sennosides (Senokot Tab) 8.6 mg PO DAILY [facility] Last Admin: 01/19/18 13:09 Dose: 8.6 mg Sucralfate (Carafate Tab) 1 gm PO ACBHS [facility] Last Admin: 01/19/18 08:30 Dose: Not Given Trazodone HCl (Desyrel) 150 mg PO HS [facility] Last Admin: 01/18/18 21:38 Dose: 150 mg - Labs Labs: 01/17/18 11:09 01/17/18 11:09 PT 12.9 SECONDS (9.7-12.2) H 01/16/18 06:31 INR 1.2 01/16/18 06:31 APTT 28 SECONDS (21-34) 01/16/18 06:31 Assessment and Plan - Assessment and Plan (Free Text) Assessment: 47 year old female admitted with enteritis, s/p colonoscopy today, no active bleeding, cleared by DR Pope, seen and examined. Alert and oriented xx3, denies acute pain or distress. Discussed with DR Schmid, plan to discharge home and decrease the metformin to 500mg po bid.Advised to advance diet slowly and follow up with PMD in 1 week.
[2018-01-19 16:44] VITALS: BP 134/82; PULSE 62; RESP 20; TEMP 98.2; O2SAT 98
--- NOTE | 2018-01-19 22:10 | CP.PCM.DIS ---
Provider - Provider Date of Admission: 01/14/18 20:30 Attending physician: Juan Manuel Schmid MD Hospital Course - Lab Results Lab Results: Most Recent Lab Values WBC 8.8 K/uL (4.8-10.8) 01/17/18 11:09 RBC 4.42 Mil/uL (3.80-5.20) 01/17/18 11:09 Hgb 12.7 g/dL (11.0-16.0) 01/17/18 11:09 Hct 37.9 % (34.0-47.0) 01/17/18 11:09 MCV 85.6 fL (81.0-99.0) 01/17/18 11:09 MCH 28.7 pg (27.0-31.0) 01/17/18 11:09 MCHC 33.6 g/dL (33.0-37.0) 01/17/18 11:09 RDW 14.3 % (11.5-14.5) 01/17/18 11:09 Plt Count 194 K/uL (130-400) 01/17/18 11:09 MPV 9.1 fL (7.2-11.7) 01/17/18 11:09 Neut % (Auto) 78.9 % (50.0-75.0) H 01/17/18 11:09 Lymph % (Auto) 14.4 % (20.0-40.0) L 01/17/18 11:09 [place] % (Auto) 5.7 % (0.0-10.0) 01/17/18 11:09 Eos % (Auto) 0.4 % (0.0-4.0) 01/17/18 11:09 Baso % (Auto) 0.6 % (0.0-2.0) 01/17/18 11:09 Neut # (Auto) 7.0 K/uL (1.8-7.0) 01/17/18 11:09 Lymph # (Auto) 1.3 K/uL (1.0-4.3) 01/17/18 11:09 [place] # (Auto) 0.5 K/uL (0.0-0.8) 01/17/18 11:09 Eos # (Auto) 0.0 K/uL (0.0-0.7) 01/17/18 11:09 Baso # (Auto) 0.1 K/uL (0.0-0.2) 01/17/18 11:09 PT 12.9 SECONDS (9.7-12.2) H 01/16/18 06:31 INR 1.2 01/16/18 06:31 APTT 28 SECONDS (21-34) 01/16/18 06:31 pO2 18 mm/Hg (30-55) L 01/14/18 19:01 VBG pH 7.33 (7.32-7.43) 01/14/18 19: VBG pCO2 46 mmHg (40-60) 01/14/18 19: VBG HCO3 21.4 mmol/L 01/14/18 19: VBG Total CO2 25.7 mmol/L (22-28) 01/14/18 19:01 VBG O2 Sat (Calc) 29.3 % (40-65) L 01/14/18 19:01 VBG Base Excess -1.9 mmol/L (0.0-2.0) L 01/14/18 19:01 VBG Potassium 2.8 mmol/L (3.6-5.2) L 01/14/18 19:01 Sodium 139.0 mmol/l (132-148) 01/14/18 19:01 Chloride 111.0 mmol/L (98-107) H 01/14/18 19:01 Glucose 179 mg/dl (65-105) H 01/14/18 19:01 Lactate 0.8 mmol/L (0.7-2.1) 01/14/18 19: FiO2 21.0 % 01/14/18 15:50 Sodium 137 mmol/L (132-148) 01/17/18 11:09 Potassium 3.8 mmol/L (3.6-5.2) 01/17/18 11:09 Chloride 100 mmol/L (98-107) 01/17/18 11:09 Carbon Dioxide 26 mmol/L (22-30) 01/17/18 11:09 Anion Gap 15 (10-20) 01/17/18 11:09 BUN 6 mg/dL (7-17) L 01/17/18 11:09 Creatinine 0.5 mg/dL (0.7-1.2) L 01/17/18 11:09 Est GFR ( Amer) > 60 01/17/18 11:09 Est GFR (Non-Af Amer) > 60 01/17/18 11:09 POC Glucose (mg/dL) 240 mg/dL (65-110) H 01/19/18 16:25 Random Glucose 232 mg/dL (65-105) H 01/17/18 11:09 Calcium 8.6 mg/dl (8.6-10.4) 01/17/18 11:09 Phosphorus 3.4 mg/dL (2.5-4.5) 01/14/18 15:53 Magnesium 1.5 mg/dL (1.6-2.3) L 01/14/18 15:53 Total Bilirubin 0.4 mg/dL (0.2-1.3) 01/17/18 11:09 AST 15 U/L (14-36) 01/17/18 11:09 ALT 23 U/L (9-52) 01/17/18 11:09 Alkaline Phosphatase 85 U/L (38-126) 01/17/18 11:09 Total Protein 6.4 g/dL (6.3-8.3) 01/17/18 11:09 Albumin 3.4 g/dL (3.5-5.0) L 01/17/18 11:09 Globulin 3.0 gm/dL (2.2-3.9) 01/17/18 11:09 Albumin/Globulin Ratio 1.1 (1.0-2.1) 01/17/18 11:09 Amylase 45 U/L (30-110) 01/15/18 13:35 Lipase 48 U/L (23-300) 01/15/18 13:35 Carcinoembryonic Ag 3.2 ng/mL (0-3.0) H 01/16/18 06:31 Venous Blood Potassium 2.8 mmol/L (3.6-5.2) L 01/14/18 19:01 Urine Color Yellow (YELLOW) 01/14/18 18:54 Urine Clarity Clear (Clear) 01/14/18 18:54 Urine pH 5.0 (5.0-8.0) 01/14/18 18:54 Ur Specific [place] 1.030 (1.003-1.030) 01/14/18 18:54 Urine Protein Negative mg/dL (NEGATIVE) 01/14/18 18:54 Urine Glucose (UA) Normal mg/dL (Normal) 01/14/18 18:54 Urine Ketones Negative mg/dL (NEGATIVE) 01/14/18 18:54 Urine Blood 1+ (NEGATIVE) H 01/14/18 18:54 Urine Nitrate Negative (NEGATIVE) 01/14/18 18:54 Urine Bilirubin Negative (NEGATIVE) 01/14/18 18:54 Urine Urobilinogen Normal mg/dL (0.2-1.0) 01/14/18 18:54 Ur Leukocyte Esterase Trace Javi/uL (Negative) 01/14/18 18:54 Urine WBC (Auto) 7 /hpf (0-5) H 01/14/18 18:54 Urine RBC (Auto) 9 /hpf (0-3) H 01/14/18 18:54 Ur Squamous Epith Cells 4 /hpf (0-5) 01/14/18 18:54 Urine Bacteria Rare (<OCC) 01/14/18 18:54 Urine HCG, Qual Negative (NEGATIVE) 01/19/18 06:59 Discharge Plan - Discharge Medications Prescriptions: MetFORMIN [glucoPHAGE] 500 mg PO BID 30 Days tab - Follow Up Plan Condition: STABLE Disposition: HOME/ ROUTINE Instructions: Diarrhea in Adolescents and Adults, Diabetes Exchange Diet, Dehydration, Adult (DC), Diabetic Meal Planning Referrals: Juan Manuel Schmid MD [Staff Provider] -
--- NOTE | 2018-01-20 07:03 | PN ---
DATE: 01/17/2018 SUBJECTIVE: Piero Esposito has no bowel movement since she came in the hospital. She has persistent abdominal pain; however, she wants to try diet. The patient has been seen by GI. There is a possible colonoscopy near on Friday. The patient other than that is feeling better. She denies any shortness of breath. No chest pain. PHYSICAL EXAMINATION: VITAL SIGNS: Blood pressure 145/84, pulse 55, respiratory rate 20, temperature 97.8. LUNGS: Clear. No rales. No rhonchi. CARDIOVASCULAR SYSTEM: S1 and S2, regular. ABDOMEN: Soft, nontender. Bowel sounds are positive. ASSESSMENT: 1. Gastritis, enteritis, colitis. 2. Hypertension. 3. Type-2 diabetes. 4. Dehydration. PLAN: Proceed diet. Senna tablet at bedtime. Monitor the patient. Juan Manuel Schmid MD
--- NOTE | 2018-01-20 07:10 | PN ---
DATE: 01/16/2018 SUBJECTIVE: Status post EGD and she has gastritis, antritis. She has less abdominal pain. She is afebrile. No shortness of breath. She is on diet. PHYSICAL EXAMINATION: VITAL SIGNS: Blood pressure 130/76, pulse 56, respiratory rate 20, temperature 98.4. LUNGS: Clear. CARDIOVASCULAR SYSTEM: S1 and S2, regular. ABDOMEN: Soft. ASSESSMENT: 1. Gastritis, enteritis. 2. Dehydration. 3. Type 2 diabetes. PLAN: Continue current medication. Monitor the patient. Juan Manuel Schmid MD
--- NOTE | 2018-01-20 10:40 | DS ---
SUBJECTIVE: She is status post colonoscopy. She was found to have enteritis in the meantime. The patient feels better. She denies any abdominal pain, nausea, or vomiting. She denies any fever or chills. No cough. No soar throat. PHYSICAL EXAMINATION: VITAL SIGNS: Blood pressure 134/82, pulse 64, respiratory rate 20, and temperature 98.2. LUNGS: Clear. CVS: S1 and S2 regular. ABDOMEN: Soft. LABORATORY DATA: WBC 8.8, hemoglobin 12.7, hematocrit 37.9, and platelets 194. Chemistry: Sodium 137, potassium 3.8, chloride 100, bicarb 26, BUN 6, and creatinine 0.5. DISCHARGE DIAGNOSES: 1. Enteritis. 2. Dehydration. 3. Diabetes. 4. Hypertension. PLAN: Discharge the patient. Juan Manuel Schmid MD
== END 2018-01-19 20:21 | disposition home or self-care (01) | DRG 813 ==
LOC: C.ER 14:02 → C.9E 20:30 → C.3T 21:12
PROVIDERS: ADMIT Internal Medicine; ATTEND Internal Medicine
DX: A09 Infectious gastroenteritis and colitis, unspecified (principal); E11.65 Type 2 diabetes mellitus with hyperglycemia; K29.70 Gastritis, unspecified, without bleeding; E86.0 Dehydration; I10 Essential (primary) hypertension; J45.909 Unspecified asthma, uncomplicated; F31.9 Bipolar disorder, unspecified; K27.9 Peptic ulcer, site unspecified, unspecified as acute or chronic, without hemorrhage or perforation; F43.10 Post-traumatic stress disorder, unspecified; E78.5 Hyperlipidemia, unspecified; Z87.891 Personal history of nicotine dependence

== ENCOUNTER 2018-01-21 17:05 | Observation (INO) | payer OTHER ==
[2018-01-21 17:05] VITALS: BMI 43.2
[2018-01-21] MEDS ORDERED: Sodium Chloride 0.9% 1,000 ML IV ONE ×2 (19:08)
--- NOTE | 2018-01-21 19:09 | C.PDOC ---
History Of Present Illness 47 year old female with PMHx HTN is sent to the ED from her PMD's office for evaluation of hypotension. Patient c/o headache, dizziness and low blood pressure for the past week. Patient states she also has high blood sugar. Patient denies fever, chills, visual changes, nausea, vomit, weakness, numbness. Chief Complaint (Nursing): Dizziness/Lightheaded History Per: Patient History/Exam Limitations: no limitations Onset/Duration Of Symptoms: Days Current Symptoms Are (Timing): Still Present Activity At Onset Of Symptoms: Standing Associated Symptoms Preceding Syncopal Episode: Lightheadedness Seizure Or Post-ictal Symptoms: None Possible Causative Factor(s): Other Recent travel outside of the [place]: No Additional History Per: Patient Past Medical History Reviewed: Historical Data, Nursing Documentation, Vital Signs Vital Signs: Last Vital Signs Temp 97.8 F 01/21/18 17:35 Pulse 77 01/21/18 18:48 Resp 15 01/21/18 18:48 BP 89/60 L 01/21/18 18:48 Pulse Ox 100 01/21/18 18:48 - Medical History PMH: Anxiety, Arthritis, Asthma, Bipolar Disorder, Depression, Post Traumatic Stress Disorder Denies: Chronic Kidney Disease Surgical History: Tonsillectomy Family History: States: Unknown Family Hx - Social History Hx Alcohol Use: No Hx Substance Use: No - Immunization History Hx Tetanus Toxoid Vaccination: No Hx Influenza Vaccination: No Hx Pneumococcal Vaccination: No Review Of Systems Constitutional: Negative for: Fever, Chills Eyes: Negative for: Vision Change Cardiovascular: Negative for: Chest Pain, Palpitations Respiratory: Negative for: Cough, Shortness of Breath Gastrointestinal: Positive for: Nausea. Negative for: Vomiting, Abdominal Pain Neurological: Positive for: Headache, Dizziness. Negative for: Weakness, Numbness Physical Exam - Physical Exam Appears: Non-toxic, No Acute Distress Skin: Normal Color, Warm, Dry Head: Atraumatic, Normacephalic Eye(s): bilateral: Normal Inspection Neck: Normal ROM, Supple Chest: Symmetrical Cardiovascular: Rhythm Regular Respiratory: Normal Breath Sounds, No Rales, No Rhonchi, No Wheezing Gastrointestinal/Abdominal: Soft, No Tenderness, No Guarding, No Rebound Extremity: Normal ROM, No Tenderness, No Swelling Neurological/Psych: Oriented x3, Normal Speech, Normal Cognition, Other (no focal deficits) Gait: Steady ED Course And Treatment - Laboratory Results Result Diagrams: 01/21/18 20:55 01/21/18 20:55 ECG: Interpreted By Me, Viewed By Me ECG Rhythm: Sinus Rhythm ECG Interpretation: No Acute Changes Interpretation Of ECG: NSR, possible LAE, birderline tracings Rate From EC O2 Sat by Pulse Oximetry: 100 (ON RA) Pulse Ox Interpretation: Normal - CT Scan/US CT head Other Rad Studies (CT/US): Read By Radiologist, Radiology Report Reviewed CT/US Interpretation: EXAM: CT Head Without IV contrast. CLINICAL HISTORY: HEADACHE. TECHNIQUE: Axial computed tomography images of the head/brain without intravenous contrast. 1058 mGy-cm. COMPARISON: None provided. FINDINGS: BRAIN. No acute intraparenchymal hemorrhage. No mass lesion. No CT evidence for acute territorial infarct. No midline shift or extra-axial collections. VENTRICLES: No hydrocephalus. ORBITS: The orbits are unremarkable. SINUSES AND MASTOIDS: The paranasal sinuses and mastoid air cells are clear. BONES: No fracture. IMPRESSION: No acute intracranial abnormality. . Electronically signed on Jan 21, 2018 7:54:38 PM EDT by: Jaycob Ludwig M.D., RUTHIE Certified By ABR & CBCCT. Fellowship Trained MRI and CT Specialist Medical Decision Making Medical Decision Making: Plan: * CT head * EKG * Labs * IV fluids * UA Blood pressure recheck was 97/56 Disposition Discussed With : Juan Manuel Schmid Doctor Will See Patient In The: Hospital Counseled Patient/Family Regarding: Diagnosis - Disposition Disposition: HOSPITALIZED Disposition Time: 21:52 Condition: STABLE Forms: [facility] ([place]) - Clinical Impression Clinical Impression: Dizziness, Hypotensive episode, UTI (urinary tract infection), Diabetes mellitus - Scribe Statement The provider has reviewed the documentation as recorded by the Scribe Delfino Valdez All medical record entries made by the Scribe were at my direction and personally dictated by me. I have reviewed the chart and agree that the record accurately reflects my personal performance of the history, physical exam, medical decision making, and the department course for this patient. I have also personally directed, reviewed, and agree with the discharge instructions and disposition.
[2018-01-21] MEDS ORDERED: Sodium Chloride 0.9% 1,000 ML ONE (19:44)
[2018-01-21 21:01] LABS: BASO % 0.4 % (0.0-2.0); EOS # 0.1 K/uL (0.0-0.7); EOS % 0.6 % (0.0-4.0); HEMOGLOBIN 13.4 g/dL (11.0-16.0); LYMPH % 19.2 % (20.0-40.0); MEAN CELL VOLUME 86.2 fL (81.0-99.0); MEAN CORPUSCULAR HEMOGLOBIN 28.5 pg (27.0-31.0); MEAN PLATELET VOLUME 9.6 fL (7.2-11.7); MONO # 0.9 K/uL (0.0-0.8); MONO % 8.3 % (0.0-10.0); NEUT # 7.5 K/uL (1.8-7.0); NEUT % 71.5 % (50.0-75.0); RBC 4.71 Mil/uL (3.80-5.20); RED CELL DISTRIBUTION WIDTH 14.7 % (11.5-14.5); WHITE BLOOD COUNT 10.4 K/uL (4.8-10.8)
[2018-01-21 21:08] LABS: SQUAMOUS EPITHIAL 31 /hpf (0-5); URINE BACTERIA RARE (<OCC); URINE BILIRUBIN 1+ (NEGATIVE); URINE BLOOD NEGATIVE (NEGATIVE); URINE CLARITY Hazy (Clear); URINE COLOR Amber (YELLOW); URINE GLUCOSE (UA) 1+ mg/dL (Normal); URINE HYALINE CAST >20 /lpf (0-2); URINE LEUKOCYTE ESTERASE TRACE Leu/uL (Negative); URINE PROTEIN 1+ mg/dL (NEGATIVE)
[2018-01-21 21:17] LABS: ALB/GLOB RATIO 1.3 (1.0-2.1); ALT/SGPT 31 U/L (9-52); AST/SGOT 26 U/L (14-36); BLOOD UREA NITROGEN 13 mg/dL (7-17); CALCIUM 9.6 mg/dl (8.6-10.4); GFR NON-AFRICAN AMERICAN 53
[2018-01-21] MEDS ORDERED: Albuterol HFA 90 mcg/actuation (8 g) IH PRN (23:52)
--- NOTE | 2018-01-21 23:56 | CP.PCM.HP ---
Past Patient History - Infectious Disease Hx of Infectious Diseases: None - Past Social History Smoking Status: Never Smoked - CARDIAC Hx Cardiac Disorders: Yes Hx Hypotension: Yes - PULMONARY Hx Asthma: Yes - NEUROLOGICAL Hx Neurological Disorder: No - HEENT Hx HEENT Problems: No - RENAL Hx Chronic Kidney Disease: No - ENDOCRINE/METABOLIC Hx Endocrine Disorders: Yes Hx Diabetes Mellitus Type 2: Yes - HEMATOLOGICAL/ONCOLOGICAL Hx Blood Disorders: No - INTEGUMENTARY Hx Dermatological Problems: No - MUSCULOSKELETAL/RHEUMATOLOGICAL Hx Arthritis: Yes - GASTROINTESTINAL Hx Gastrointestinal Disorders: No - GENITOURINARY/GYNECOLOGICAL Hx Genitourinary Disorders: No - PSYCHIATRIC Hx Anxiety: Yes Hx Bipolar Disorder: Yes Hx Depression: Yes Hx Post Traumatic Stress Disorder: Yes Hx Substance Use: No - SURGICAL HISTORY Hx Tonsillectomy: Yes - ANESTHESIA Hx Anesthesia: Yes Hx Anesthesia Reactions: No Hx Malignant Hyperthermia: No Meds Allergies/Adverse Reactions: Allergies Allergy/AdvReac Type Severity Reaction Status Date / Time No Known Allergies Allergy Verified 01/21/18 17:40 Results - Vital Signs Recent Vital Signs: Last Vital Signs Temp 98.2 F 01/21/18 20:54 Pulse 68 01/21/18 20:54 Resp 16 01/21/18 20:54 BP 129/70 01/21/18 20:54 Pulse Ox 100 01/21/18 21:53 - Labs Result Diagrams: 01/21/18 20:55 01/21/18 20:55 Labs: Laboratory Results - last 24 hr 01/21/18 01/21/18 01/21/18 20:55 20:55 20:55 WBC 10.4 RBC 4.71 Hgb 13.4 Hct 40.6 MCV 86.2 MCH 28.5 MCHC 33.0 RDW 14.7 H Plt Count 259 MPV 9.6 Neut % (Auto) 71.5 Lymph % (Auto) 19.2 L [place] % (Auto) 8.3 Eos % (Auto) 0.6 Baso % (Auto) 0.4 Neut # (Auto) 7.5 H Lymph # (Auto) 2.0 [place] # (Auto) 0.9 H Eos # (Auto) 0.1 Baso # (Auto) 0.0 Sodium 136 Potassium 4.1 Chloride 97 L Carbon Dioxide 26 Anion Gap 16 BUN 13 Creatinine 1.1 Est GFR ( Amer) > 60 Est GFR (Non-Af Amer) 53 Random Glucose 254 H Calcium 9.6 Total Bilirubin 0.4 AST 26 ALT 31 Alkaline Phosphatase 91 Troponin I 0.0240 Total Protein 7.0 Albumin 4.0 Globulin 3.0 Albumin/Globulin Ratio 1.3 Urine Color [place] Urine Clarity Hazy Urine pH 5.0 Ur Specific [place] 1.019 Urine Protein 1+ H Urine Glucose (UA) 1+ Urine Ketones Negative Urine Blood Negative Urine Nitrate Negative Urine Bilirubin 1+ H Urine Urobilinogen 2.0 H Ur Leukocyte Esterase Trace Urine WBC (Auto) 42 H Urine RBC (Auto) 7 H Ur Squamous Epith Cells 31 H Urine Bacteria Rare Hyaline Casts >20 H
[2018-01-22] MEDS: Sodium Chloride 0.9% 1,000 ML IV SCH ×5 (01:26→20:14)
[2018-01-22 05:30] VITALS: RESP 20
--- NOTE | 2018-01-22 06:52 | CT ---
Date of service: 01/21/2018 PROCEDURE: CT HEAD WITHOUT CONTRAST. HISTORY: Headache COMPARISON: None available. TECHNIQUE: Axial computed tomography images were obtained through the head/brain without intravenous contrast. Radiation dose: Total exam DLP = 1058 mGy-cm. This CT exam was performed using one or more of the following dose reduction techniques: Automated exposure control, adjustment of the mA and/or kV according to patient size, and/or use of iterative reconstruction technique. FINDINGS: HEMORRHAGE: No intracranial hemorrhage. BRAIN: No mass effect or edema. No atrophy or chronic microvascular ischemic changes. Punctate hypodensity in the left basal ganglia may represent a prominent perivascular space. VENTRICLES: Unremarkable. No hydrocephalus. CALVARIUM: Unremarkable. Small bony exostosis emanating from the inner calvarium of the left frontal cranium on series 2, image 10. PARANASAL SINUSES: Mucosal thickening of the ethmoid air cells. MASTOID AIR CELLS: Unremarkable as visualized. No inflammatory changes. OTHER FINDINGS: None. IMPRESSION: No acute intracranial abnormality. If symptoms persists, consider correlation with MRI. These findings were preliminarily reported at 7:54 p.m. on 01/21/[address] Jaycob Ludwig from [facility].
[2018-01-22] MEDS: (Novolin R) Insulin Human Regular 100 units/ml vial SC SCH ×4 (08:03→22:15)
[2018-01-22] MEDS: (Lantus) Insulin Glargine, Recombinant SC SCH ×2 (09:41→18:11)
[2018-01-22] MEDS: Enoxaparin 40 mg Syringe SC SCH (09:49)
--- NOTE | 2018-01-22 22:58 | CP.PCM.PN ---
Subjective - Subjective Subjective: dictated Objective - Vital Signs/Intake and Output Vital Signs (last 24 hours): Temp Pulse Resp BP Pulse Ox 98.2 F 74 20 116/74 96 01/22/18 15:00 01/22/18 15:00 01/22/18 15:00 01/22/18 15:00 01/22/18 15:00 Intake and Output: 01/22/18 01/23/18 18:59 06:59 Intake Total 2640 800 Balance 2640 800 - Medications Medications: Current Medications Albuterol (Ventolin Hfa 90 Mcg/Actuation (8 G)) 1 puff IH RQ6 PRN PRN Reason: asthma Aripiprazole (Abilify) 30 mg PO DAILY [facility] Last Admin: 01/22/18 09:41 Dose: 30 mg Enoxaparin Sodium (Lovenox) 40 mg SC DAILY [facility] Last Admin: 01/22/18 09:49 Dose: 40 mg Fluoxetine HCl (Prozac) 20 mg PO DAILY [facility] Last Admin: 01/22/18 09:41 Dose: 20 mg Sodium Chloride (Sodium Chloride 0.9%) 1,000 mls @ 100 mls/hr IV .Q10H [facility] Last Admin: 01/22/18 20:14 Dose: Not Given Influenza Virus Vaccine (Fluzone Quad 0741-3992) 60 mcg IM .ONCE ONE Stop: 01/23/18 14:01 Insulin Glargine (Lantus) 30 unit SC BID [facility] Last Admin: 01/22/18 18:11 Dose: 30 units Insulin Human Regular (Novolin R) 0 unit SC ACHS [facility]; Protocol Last Admin: 01/22/18 22:15 Dose: Not Given Metformin HCl (Glucophage) 500 mg PO BID [facility] Last Admin: 01/22/18 18:10 Dose: 500 mg Montelukast Sodium (Singulair) 10 mg PO DAILY [facility] Last Admin: 01/22/18 09:41 Dose: 10 mg Trazodone HCl (Desyrel) 150 mg PO HS [facility] Last Admin: 01/22/18 22:13 Dose: 150 mg - Labs Labs: 01/21/18 20:55 01/21/18 20:55
[2018-01-23] MEDS: Sodium Chloride 0.9% 1,000 ML IV SCH ×2 (00:15→10:54)
[2018-01-23 03:05] VITALS: PULSE 67
[2018-01-23 07:45] VITALS: BP 127/69; TEMP 98.5; O2SAT 96
[2018-01-23] MEDS: (Novolin R) Insulin Human Regular 100 units/ml vial SC SCH ×2 (08:19→12:30)
--- NOTE | 2018-01-23 09:12 | PN ---
DATE: 01/22/2018 SUBJECTIVE: The patient, Vaibhav, is feeling better. Her blood pressure is better. She denies any fever or chills. She denies any dysuria. PHYSICAL EXAMINATION: VITAL SIGNS: Blood pressure 116/74, pulse 74, respiratory rate 20, temperature 98.2. LUNGS: Bilaterally clear. No rales. No rhonchi. CARDIOVASCULAR SYSTEM: S1 and S2, regular. ABDOMEN: Soft, nontender. Bowel sounds are positive. LABORATORY DATA: WBC 10.4, hemoglobin 13.4. ASSESSMENT: 1. Status post hypotension, improved, off blood pressure medication. 2. Poorly controlled diabetes. 3. Dehydration. PLAN: Intravenous fluids. Accu-Cheks, sliding scale. Tight blood sugar control. Discontinue BP medicine at home. The patient does take prazosin for her sleep disorder, but the patient agrees to hold it off given low blood pressure side effects. Juan Manuel Schmid MD
--- NOTE | 2018-01-23 09:13 | HP ---
CHIEF COMPLAINT: Low blood pressure. HISTORY OF PRESENT ILLNESS: This is a 47-year-old female with obesity, diabetes, hypertension hyperlipidemia. She has a history of adrenal nodule. The patient is compliant with her diet, medication, and followup. The patient was recently discharged from [facility] where she was admitted with abdominal pain, nausea, and vomiting. She was found to have gastritis enteritis. The patient had endoscopy and colonoscopy as the patient was treated, stabilized and discharged. The patient came back to [place] for followup. She was feeling weak and dizzy. The patient's blood pressure was 70 systolic. No fever. No chest pain. She had dizziness. She had leg cramps, body aches, tiredness, anorexia, malaise, and fatigue. She denied any history of polyuria, polydipsia. She denied any history of hematuria or pyuria. She denied any sneezing, itchy eyes, itchy nose. There is no history of trauma, fall, loss of consciousness. There is no history of seizure like activity. She denies any tingling, numbness, or paresthesias. CURRENT MEDICATIONS: At home are fluoxetine 20 mg daily, Lantus 30 units subcu 2 times daily, Lovenox, trazodone, prazosin, Singulair, metformin, losartan, Abilify, Ventolin. SOCIAL HISTORY: She is a nonsmoker, non-EtOH user. PAST MEDICAL HISTORY: Type 2 diabetes, obesity, hypertension, hyperlipidemia. PHYSICAL EXAMINATION: GENERAL: A middle-aged female, in no distress. VITAL SIGNS: Blood pressure 115/75, pulse 71, respiratory rate 20, temperature 97.8. SKIN: Dry. No bruising, no purpura, no petechiae. HEENT: Atraumatic, normocephalic. Negative pallor. Negative jaundice. Extraocular movements are intact. NECK: Supple. No JVD. No lymph nodes. CHEST: Chest wall bilaterally symmetrical. LUNGS: Clear. No rales. No rhonchi. CVS: S1 and S2 regular. No heave. No thrill. ABDOMEN: Soft and nontender. Bowel sounds are positive. RECTAL: No masses. No bleeding. EXTREMITIES: No clubbing, cyanosis, or edema. [employer]: Awake, alert and oriented x3. Cranial nerves II through XII are normal. Power 5/5 x4. Plantars are downgoing. ASSESSMENT: 1. Low blood pressure which is iatrogenic due to the patient's blood pressure medication. 2. Type 2 diabetes, poorly controlled. 3. Hyperlipidemia. PLAN: Hold blood pressure medication, IV fluids. Monitor patient. Juan Manuel Schmid MD
[2018-01-23] MEDS: Enoxaparin 40 mg Syringe SC SCH (10:56)
[2018-01-23] MEDS: (Lantus) Insulin Glargine, Recombinant SC SCH (10:58)
[2018-01-23 12:00] LABS: BASO % 0.3 % (0.0-2.0); EOS % 0.3 % (0.0-4.0); HEMOGLOBIN 13.1 g/dL (11.0-16.0); LYMPH # 1.3 K/uL (1.0-4.3); LYMPH % 15.3 % (20.0-40.0); MEAN CELL VOLUME 85.4 fL (81.0-99.0); MEAN CORPUSCULAR HEMOGLOBIN 28.3 pg (27.0-31.0); MEAN CORPUSCULAR HGB CONC 33.1 g/dL (33.0-37.0); MEAN PLATELET VOLUME 9.5 fL (7.2-11.7); MONO # 0.5 K/uL (0.0-0.8); MONO % 5.6 % (0.0-10.0); NEUT # 6.6 K/uL (1.8-7.0); NEUT % 78.5 % (50.0-75.0); RBC 4.63 Mil/uL (3.80-5.20); RED CELL DISTRIBUTION WIDTH 14.4 % (11.5-14.5); WHITE BLOOD COUNT 8.5 K/uL (4.8-10.8)
--- NOTE | 2018-01-23 12:19 | CP.PCM.PN ---
Subjective - Date & Time of Evaluation Date of Evaluation: 01/23/18 Time of Evaluation: 11:35 - Subjective Subjective: Patient seen today, denies any dizziness, headache, abdominal pain, N/V/D a febrile BP stable - SBP in 110- 120's Objective - Vital Signs/Intake and Output Vital Signs (last 24 hours): Temp Pulse Resp BP Pulse Ox 98.5 F 67 20 127/69 96 01/23/18 07:00 01/23/18 07:00 01/23/18 07:00 01/23/18 07:00 01/23/18 08:00 Intake and Output: 01/23/18 01/23/18 06:59 18:59 Intake Total 1600 Balance 1600 - Medications Medications: Current Medications Albuterol (Ventolin Hfa 90 Mcg/Actuation (8 G)) 1 puff IH RQ6 PRN PRN Reason: asthma Aripiprazole (Abilify) 30 mg PO DAILY [facility] Last Admin: 01/23/18 10:55 Dose: 30 mg Enoxaparin Sodium (Lovenox) 40 mg SC DAILY [facility] Last Admin: 01/23/18 10:56 Dose: 40 mg Fluoxetine HCl (Prozac) 20 mg PO DAILY [facility] Last Admin: 01/23/18 10:55 Dose: 20 mg Sodium Chloride (Sodium Chloride 0.9%) 1,000 mls @ 100 mls/hr IV .Q10H [facility] Last Admin: 01/23/18 10:54 Dose: 100 mls/hr Influenza Virus Vaccine (Fluzone Quad [id number]) 60 mcg IM .ONCE ONE Stop: 01/23/18 14:01 Insulin Glargine (Lantus) 30 unit SC BID [facility] Last Admin: 01/23/18 10:58 Dose: 30 units Insulin Human Regular (Novolin R) 0 unit SC [facility]; Protocol Last Admin: 01/23/18 08:19 Dose: 2 units Metformin HCl (Glucophage) 500 mg PO BID [facility] Last Admin: 01/23/18 10:55 Dose: 500 mg Montelukast Sodium (Singulair) 10 mg PO DAILY [facility] Last Admin: 01/23/18 10:56 Dose: 10 mg Trazodone HCl (Desyrel) 150 mg PO HS [facility] Last Admin: 01/22/18 22:13 Dose: 150 mg - Labs Labs: 01/23/18 11:34 01/21/18 20:55 Assessment and Plan - Assessment and Plan (Free Text) Assessment: A/P 47 yr old femherman diaz pmhx of Anxiety, Arthritis, Asthma, Bipolar Disorder, DM. Depression, Post Traumatic Stress Disorder admitted dizziness and hypotension BP improved after stopping the meds and been stable labs this am reviewed - cbc- wnl , bmp- mild hypokalemia and K replaced d/w Dr. Schmid, cleared for discharge home today and f/u with Dr. Schmid office in 1 week discharge instructions discussed with patient who understands and agrees with plan patient instructed to returns to ED if symptoms returns or any other concerning symptoms
[2018-01-23 12:23] LABS: ALB/GLOB RATIO 1.2 (1.0-2.1); ALBUMIN 3.6 g/dL (3.5-5.0); ALT/SGPT 22 U/L (9-52); AST/SGOT 16 U/L (14-36); BLOOD UREA NITROGEN 9 mg/dL (7-17); CALCIUM 9.1 mg/dl (8.6-10.4); GFR NON-AFRICAN AMERICAN > 60
[2018-01-23] MEDS ORDERED: Influenza Vaccine 60 MCG/0.5 ML SYR (3 yr & up) IM ONE (14:00)
--- NOTE | 2018-01-23 14:51 | CARD ---
APPROVED REPORT Date of service: 01/21/2018 EKG Measurement Heart [id number] <Conclusion> Normal sinus rhythm Possible Left atrial enlargement Borderline ECG
[2018-01-23] MEDS ORDERED: Potassium Chloride 20 mEq ER Tab PO ONE (15:45)
--- NOTE | 2018-01-23 23:26 | CP.PCM.DIS ---
Provider - Provider Date of Admission: 01/21/18 21:54 Attending physician: Juan Manuel Schmid MD Hospital Course - Lab Results Lab Results: Micro Results 01/22/18 20:01 Urine Urine Culture - Final No Growth (<1,000 CFU/ML) Most Recent Lab Values WBC 8.5 K/uL (4.8-10.8) 01/23/18 11:34 RBC 4.63 Mil/uL (3.80-5.20) 01/23/18 11:34 Hgb 13.1 g/dL (11.0-16.0) 01/23/18 11:34 Hct 39.5 % (34.0-47.0) 01/23/18 11:34 MCV 85.4 fL (81.0-99.0) 01/23/18 11:34 MCH 28.3 pg (27.0-31.0) 01/23/18 11:34 MCHC 33.1 g/dL (33.0-37.0) 01/23/18 11:34 RDW 14.4 % (11.5-14.5) 01/23/18 11:34 Plt Count 213 K/uL (130-400) 01/23/18 11:34 MPV 9.5 fL (7.2-11.7) 01/23/18 11:34 Neut % (Auto) 78.5 % (50.0-75.0) H 01/23/18 11:34 Lymph % (Auto) 15.3 % (20.0-40.0) L 01/23/18 11:34 [place] % (Auto) 5.6 % (0.0-10.0) 01/23/18 11:34 Eos % (Auto) 0.3 % (0.0-4.0) 01/23/18 11:34 Baso % (Auto) 0.3 % (0.0-2.0) 01/23/18 11:34 Neut # (Auto) 6.6 K/uL (1.8-7.0) 01/23/18 11:34 Lymph # (Auto) 1.3 K/uL (1.0-4.3) 01/23/18 11:34 [place] # (Auto) 0.5 K/uL (0.0-0.8) 01/23/18 11:34 Eos # (Auto) 0.0 K/uL (0.0-0.7) 01/23/18 11:34 Baso # (Auto) 0.0 K/uL (0.0-0.2) 01/23/18 11:34 Sodium 140 mmol/L (132-148) 01/23/18 11:34 Potassium 3.3 mmol/L (3.6-5.2) L 01/23/18 11:34 Chloride 102 mmol/L (98-107) 01/23/18 11:34 Carbon Dioxide 28 mmol/L (22-30) 01/23/18 11:34 Anion Gap 13 (10-20) 01/23/18 11:34 BUN 9 mg/dL (7-17) 01/23/18 11:34 Creatinine 0.5 mg/dL (0.7-1.2) L 01/23/18 11:34 Est GFR ( Amer) > 60 01/23/18 11:34 Est GFR (Non-Af Amer) > 60 01/23/18 11:34 POC Glucose (mg/dL) 166 mg/dL (65-110) H 01/23/18 10:48 Random Glucose 168 mg/dL (65-105) H 01/23/18 11:34 Calcium 9.1 mg/dl (8.6-10.4) 01/23/18 11:34 Phosphorus 2.9 mg/dL (2.5-4.5) 01/23/18 11:34 Magnesium 1.4 mg/dL (1.6-2.3) L 01/23/18 11:34 Total Bilirubin 0.3 mg/dL (0.2-1.3) 01/23/18 11:34 AST 16 U/L (14-36) 01/23/18 11:34 ALT 22 U/L (9-52) 01/23/18 11:34 Alkaline Phosphatase 82 U/L (38-126) 01/23/18 11:34 Troponin I 0.0240 ng/mL (0.00-0.120) 01/21/18 20:55 Total Protein 6.5 g/dL (6.3-8.3) 01/23/18 11:34 Albumin 3.6 g/dL (3.5-5.0) 01/23/18 11:34 Globulin 2.9 gm/dL (2.2-3.9) 01/23/18 11:34 Albumin/Globulin Ratio 1.2 (1.0-2.1) 01/23/18 11:34 Urine Color Michelle (YELLOW) 01/21/18 20:55 Urine Clarity Hazy (Clear) 01/21/18 20:55 Urine pH 5.0 (5.0-8.0) 01/21/18 20:55 Ur Specific [place] 1.019 (1.003-1.030) 01/21/18 20:55 Urine Protein 1+ mg/dL (NEGATIVE) H 01/21/18 20:55 Urine Glucose (UA) 1+ mg/dL (Normal) 01/21/18 20:55 Urine Ketones Negative mg/dL (NEGATIVE) 01/21/18 20:55 Urine Blood Negative (NEGATIVE) 01/21/18 20:55 Urine Nitrate Negative (NEGATIVE) 01/21/18 20:55 Urine Bilirubin 1+ (NEGATIVE) H 01/21/18 20:55 Urine Urobilinogen 2.0 mg/dL (0.2-1.0) H 01/21/18 20:55 Ur Leukocyte Esterase Trace Javi/uL (Negative) 01/21/18 20:55 Urine WBC (Auto) 42 /hpf (0-5) H 01/21/18 20:55 Urine RBC (Auto) 7 /hpf (0-3) H 01/21/18 20:55 Ur Squamous Epith Cells 31 /hpf (0-5) H 01/21/18 20:55 Urine Bacteria Rare (<OCC) 01/21/18 20:55 Hyaline Casts >20 /lpf (0-2) H 01/21/18 20:55 B-Hydroxybutyrate 0.39 mM (0.02-0.27) H 01/21/18 20:55 Discharge Plan - Follow Up Plan Condition: STABLE Disposition: HOME/ ROUTINE Instructions: Diabetes Exchange Diet, Urinary Tract Infection, Adult (DC), Diabetes Diet , Low Blood Pressure (DC) Additional Instructions: Please follow up with Dr. Schmid office in 1 week PLEASE DO NOT TAKE ANY BP MEDICATIONS Resume all other home medications Referrals: Juan Manuel Schmid MD [Staff Provider] -
--- NOTE | 2018-01-26 06:36 | DS ---
ADMISSION DIAGNOSIS: Hypotension. DISCHARGE DIAGNOSES: 1. Hypotension. 2. Dehydration. 3. Type 2 diabetes. 4. Gastritis. HOSPITAL COURSE: This is a 47-year-old white female with a history of type 2 diabetes, obesity, hypotension who is compliant with diet, medication, and followup. She was just discharged from [facility] with abdominal pain, nausea, and vomiting. She underwent endoscopy and colonoscopy. The patient takes prazosin for her nightmare disorder. On the day of admission, the patient was seen by me, and the patient's blood pressure was found to be low, it was 70 systolic, she was weak, she was dizzy. The patient was admitted. Her blood pressure medications were discontinued, and she was started on IV fluids, Accu-Cheks, sliding scale, septic workup. Recently developed blood pressure, maintained without IV fluids, off BP medications, and she is being discharged. PHYSICAL EXAMINATION: VITAL SIGNS: Blood pressure 127/69, pulse 67, respiratory rate 20, temperature 98.5. LABORATORY DATA: WBC 8.5, hemoglobin 13.1, hematocrit 39.5, platelets 213. Sodium 140, potassium 3.3, chloride 102, BUN 9, creatinine 0.5. CONDITION UPON DISCHARGE: Stable. She will be followed up by me. Juan Manuel Schmid MD
== END 2018-01-23 15:54 | disposition home or self-care (01) ==
LOC: C.ER 17:05 → C.9E 21:54 → C.6T 22:50
PROVIDERS: ADMIT Internal Medicine; ATTEND Internal Medicine
DX: I95.9 Hypotension, unspecified (principal); E86.0 Dehydration; E11.65 Type 2 diabetes mellitus with hyperglycemia; K52.9 Noninfective gastroenteritis and colitis, unspecified; J45.909 Unspecified asthma, uncomplicated; F31.9 Bipolar disorder, unspecified; F43.10 Post-traumatic stress disorder, unspecified; F41.8 Other specified anxiety disorders; I10 Essential (primary) hypertension; E78.5 Hyperlipidemia, unspecified; E66.9 Obesity, unspecified
CPT/HCPCS: 36415; 70450; 80053; 81001; 82009; 82948; 83735; 84100; 84484; 85025; 87086; 93005; 97116; 97161; 99285; G0378; G8978; G8979; G8980; J1650; J7030